=== PATIENT | female | born 1955 | race African-American/Black ===

== ENCOUNTER 2022-08-31 07:22 | Emergency (ER) | payer MEDICAID, MEDICARE ==
[~2022-08-31] VITALS: Ht 162.6 cm; Wt 68.0 kg
[2022-08-31] MEDS ORDERED: IBUPROFEN 600MG TABLET PO STA (10:51)
[2022-08-31 11:22] VITALS: BP 121/65
[2022-08-31] MEDS ORDERED: ACET-2708 PO (11:40)
== END 2022-08-31 12:00 | disposition home or self-care (01) ==
LOC: ER 07:22
DX: S93.691A Other sprain of right foot, initial encounter (principal); W18.40XA Slipping, tripping and stumbling without falling, unspecified, initial encounter; Y93.89 Activity, other specified; Y92.018 Other place in single-family (private) house as the place of occurrence of the external cause
CPT/HCPCS: 73610; 73630; 99284

== ENCOUNTER 2024-03-14 08:27 | Emergency (ER) | payer MEDICAID ==
[~2024-03-14] VITALS: Ht 157.5 cm; Wt 70.0 kg
[~2024-03-14 08:27] MED LIST: ACET-2708 PO
[2024-03-14 08:38] VITALS: BP 143/83; PULSE 66; RESP 18; TEMP 98.1; O2SAT 99
[2024-03-14] MEDS ORDERED: HYDROCODONE/ACETAMINOPHEN 5/325MG TABLET PO ONE (11:30)
== END 2024-03-14 13:28 | disposition home or self-care (01) ==
LOC: ER 08:27
DX: S92.102A Unspecified fracture of left talus, initial encounter for closed fracture (principal); E03.9 Hypothyroidism, unspecified; Z98.890 Other specified postprocedural states; W18.39XA Other fall on same level, initial encounter; Y93.89 Activity, other specified; Y92.89 Other specified places as the place of occurrence of the external cause; Y99.8 Other external cause status
CPT/HCPCS: 29515; 71101; 73030; 73502; 73560; 73610; 73630; 99284

== ENCOUNTER 2024-10-21 23:26 | Emergency (ER) | payer MEDICAID, OTHER ==
[~2024-10-21] VITALS: Ht 162.6 cm; Wt 60.0 kg
[2024-10-21 23:32] VITALS: O2SAT 97
[2024-10-21 23:39] VITALS: BP 165/80; PULSE 70; RESP 16; TEMP 36.9; O2SAT 100
[2024-10-22 00:59] LABS: CHLORIDE 109 mEq/L (98-107); POTASSIUM 3.9 mEq/L (3.5-5.1); SODIUM 144 mEq/L (136-145)
[2024-10-22 01:00] LABS: CARBON DIOXIDE 28 mEq/L (21-32)
[2024-10-22 01:01] LABS: BASOPHILS % 0.9 % (0.0-2.0); HEMATOCRIT. 34.9 % (36.0-48.0); HEMOGLOBIN. 11.8 g/dL (12.0-16.0); LYMPHOCYTES % 53.3 % (20.0-50.0); MEAN CORPUSCULAR HGB CONC 33.7 g/dL (31.0-37.0); MEAN PLATELET VOLUME 7.7 fl (7.4-10.4); NEUTROPHILS % 34.8 % (40.0-76.0); PLATELET 239 x1000/uL (130-400); RED BLOOD CELL COUNT 3.92 mill/uL (4.2-5.4); RED CELL DISTRIBUTION WIDTH 14.7 % (11.6-14.6); WHITE BLOOD COUNT 5.4 x1000/uL (4.5-11.0)
[2024-10-22 01:05] LABS: CREATININE 0.9 mg/dL (0.6-1.0); GLUCOSE 112 mg/dL (70-105); UREA NITROGEN BLOOD 10 mg/dL (9-23)
[2024-10-22 01:07] LABS: ALANINE AMINOTRANSFERASE 20 IU/L (10-49); ALBUMIN 3.9 g/dL (3.2-4.8); ASPARTATE AMINOTRANSFERASE 26 IU/L (<34); BILIRUBIN TOTAL 0.4 mg/dL (0.1-1.0)
[2024-10-22 01:23] LABS: BILIRUBIN DIRECT < 0.1 mg/dL (<=3.0)
[2024-10-22 03:55] LABS: CLARITY URINE CLEAR (CLEAR); COLOR URINE YELLOW (YELLOW); GLUCOSE URINE NEGATIVE (NEGATIVE); KETONES URINE NEGATIVE (NEGATIVE); LEUKOCYTE ESTERASE URINE NEGATIVE (NEGATIVE); NITRITE URINE NEGATIVE (NEGATIVE); OCCULT BLOOD URINE NEGATIVE (NEGATIVE); PH URINE 6.5 (4.5-8.0); PROTEIN URINE NEGATIVE (NEGATIVE); SPECIFIC GRAVITY URINE 1.016 (1.005-1.030); UROBILINOGEN URINE 0.2 E.U./dL (0.2-1.0)
== END 2024-10-22 03:53 | disposition left against medical advice (07) ==
LOC: ER 23:34
DX: R10.9 Unspecified abdominal pain (principal)
CPT/HCPCS: 36415; 80048; 80076; 81003; 85025; 93005; 99284